=== PATIENT | female | born 2000 | race Hispanic/Latino ===

== ENCOUNTER 2019-12-22 01:47 | Emergency (ER) | payer SELFPAY ==
[2019-12-22 02:09] LABS: Bilirubin Negative (Negative); Blood, Urine Negative (Negative); Clarity Clear (Clear); Glucose, Urine (Dipstick) Normal (Negative); Leukocyte Negative Leu/uL (Negative); Nitrite Negative (Negative); Protein, Urine (Dipstick) Negative (Neg-Trace); Urobilinogen Normal mg/dL (Less than 2)
[2019-12-22 02:10] LABS: Pregnancy Test - Urine (BHCG) Negative (Negative); Pregu Control Background? CLEAR/WHITE (CLR/WHITE); Pregu Control Bar Appear? YES (CONTROL BAR); Specific Gravity 1.006 (1.002-1.036)
== END 2019-12-22 03:12 | disposition home or self-care (01) ==
LOC: ERS 01:47
DX: R10.9 Unspecified abdominal pain (principal); Z87.891 Personal history of nicotine dependence
CPT/HCPCS: 81003; 81025; 99284

== ENCOUNTER 2022-11-23 12:33 | Outpatient (CLI) | payer OTHER | END 2022-11-23 12:34 | disposition home or self-care (01) | LOC: BICRAD 12:33 | PROVIDERS: ATTEND Nurse Practitioner Family | DX: S69.91XD Unspecified injury of right wrist, hand and finger(s), subsequent encounter (principal); S69.92XD Unspecified injury of left wrist, hand and finger(s), subsequent encounter ==